=== PATIENT | female | born 1955 | race Caucasian/White ===

== ENCOUNTER 2017-10-24 13:06 | Day surgery (SDC) | payer BC ==
[2017-10-24] MEDS ORDERED: LIDOCAINE 2% MDV (20MG/ML) 20ML VIAL IV ONE (13:07)
[2017-10-24] MEDS ORDERED: PROPOFOL 10 MG/ML VIAL IV ONE (13:07)
--- NOTE | 2017-10-25 12:50 | Operative Note ---
DATE OF SURGERY: 10/24/2017 Surgeon: Jonnathan Mancera DO Referring physician: James Lamb MD, FACP PREOPERATIVE DIAGNOSIS: Personal history of polyps. POSTOPERATIVE DIAGNOSES: 1. Colon polyps. 2. Sigmoid diverticulosis. OPERATION: COLONOSCOPY COLD FORCEPS AND COLD SNARE POLYPECTOMIES PROCEDURE: After informed consent was obtained from the patient, she was placed in the left lateral decubitus position in the endoscopy suite, sedated and monitored by the Department of Anesthesia. Digital rectal exam was unremarkable. A well-lubricated PCF 180 colonoscope was inserted in the rectum and advanced to the cecum. The preparation quality was good to excellent. The cecum was unremarkable. The ascending colon revealed a diminutive polyp, removed with a cold forceps. The remainder of the ascending colon and transverse colon and descending colon were unremarkable. The sigmoid colon demonstrated scattered diverticula. The rectal sigmoid colon revealed 2 polyps, ranging in size from 4 to 6 mm; each of these polyps removed with a cold snare with minimal bleeding noted. The polyps were retrieved without difficulty. J-turn views of the anorectum were unremarkable. The endoscope was straightened, the rectal ampulla deflated. The endoscope was removed. RECOMMENDATIONS: I suggest the patient follow a high-fiber diet. She will require repeat exam in 3 to 5 years, pending tissue histology. As always, thank you for allowing me to participate in the healthcare of your patient. CC: JAMES LAMB MD, FACP Jonnathan Mancera DO [facility]
== END 2017-10-24 14:22 | disposition home or self-care (01) ==
LOC: HOP 13:06
PROVIDERS: ATTEND Internal Medicine Gastroenterology
DX: Z12.11 Encounter for screening for malignant neoplasm of colon (principal); Z86.010 Personal history of colon polyps; D12.2 Benign neoplasm of ascending colon; D12.7 Benign neoplasm of rectosigmoid junction; M19.90 Unspecified osteoarthritis, unspecified site; K57.30 Diverticulosis of large intestine without perforation or abscess without bleeding